=== PATIENT | male | born 1970 | race Caucasian/White ===

== ENCOUNTER 2021-01-23 08:57 | Inpatient (IN) | payer MEDICAID ==
[~2021-01-23] VITALS: Ht 175.3 cm; Wt 70.0 kg
[2021-01-23] MEDS ORDERED: KETOROLAC TROMETHAMINE 60 MG/2 ML VIAL IM ONE (09:15)
[2021-01-23] MEDS ORDERED: MORPHINE SULFATE 4 MG/ML SYRINGE IVP ONE ×2 (09:30→11:15)
[2021-01-23] MEDS ORDERED: ONDANSETRON HCL 4 MG/2 ML VIAL IVP ONE (09:30)
[2021-01-23 09:53] LABS: EOSINOPHILS % (AUTO) 0.6 % (1.0-6.0); HEMOGLOBIN 15.8 g/dL (13.5-17.5); MEAN CORPUSCULAR HGB CONC 33.8 G/dL (31.0-37.0); MEAN CORPUSCULAR VOLUME 93 fL (80-100); MONOCYTES # (AUTO) 0.4 K/uL (0.1-1.0)
[2021-01-23 09:57] LABS: BASOPHILS % (AUTO) 0.9 % (0.0-2.0); HEMATOCRIT 46.8 % (41-53); LYMPHOCYTES # (AUTO) 1.8 K/uL (1.0-4.8); MEAN CORPUSCULAR HEMOGLOBIN 31.4 pg (26.0-34.0); MONOCYTES % (AUTO) 4.2 % (2.0-9.0); NEUTROPHILS # (AUTO) 6.9 K/uL (1.8-7.7); NEUTROPHILS % (AUTO) 74.3 % (40.0-70.0); RED BLOOD CELL COUNT(AUTO) 5.04 MIL/uL (4.50-5.90)
[2021-01-23 10:00] LABS: ANION GAP 12 mmol/L (8-16); CALCIUM, TOTAL 8.8 mg/dL (8.8-10.5); CARBON DIOXIDE 23 mmol/L (22-29); CHLORIDE 105 mmol/L (98-107); CREATININE 0.75 mg/dL (0.60-1.30); GLOMERULAR FILTR. RATE CALC > 60 mL/min (>60); GLUCOSE,RANDOM 111 mg/dL (70-110); POTASSIUM 4.3 mmol/L (3.5-5.1); SODIUM SERUM 140 mmol/L (136-145); UREA NITROGEN, BLOOD 11 mg/dL (7-18)
[2021-01-23 10:04] LABS: INR 1.1 (0.9-1.1); PROTHROMBIN TIME 11.6 SEC (9.4-11.6)
[2021-01-23 10:35] LABS: PLATELET COUNT (AUTO) 193 K/uL (150-450)
[2021-01-23] MEDS ORDERED: 0.9% SODIUM CHLORIDE 10 ML SYRINGE IVP PRN (11:30)
[2021-01-23 12:24] LABS: COVID AG,FIA SOURCE NASOPHARYNGEAL
[2021-01-23] MEDS ORDERED: MORPHINE SULFATE 2 MG/ML SYRINGE IVP PRN (14:30)
[2021-01-23] MEDS ORDERED: ZOLPIDEM TARTRATE 5 MG TABLET PO PRN (14:30)
[2021-01-23] MEDS ORDERED: ALBUTEROL SULFATE 2.5 MG/0.5 ML NEB SOLUTION NEB PRN (14:30)
[2021-01-23] MEDS ORDERED: MAGNESIUM HYDROXIDE SUSPENSION 30 ML UDCUP PO PRN (14:30)
[2021-01-23] MEDS ORDERED: BISACODYL 10 MG RECTAL RECTAL SUPPOSITORY PR PRN (14:30)
[2021-01-23] MEDS ORDERED: HYDROCODONE/ACETAMINOPHEN 5-325 MG TABLET PO PRN (14:30)
[2021-01-23] MEDS ORDERED: ONDANSETRON HCL 4 MG/2 ML VIAL IVP PRN (14:30)
[2021-01-23] MEDS ORDERED: IPRATROPIUM BROMIDE 0.5 MG/2.5 ML NEB SOLUTION NEB PRN (14:30)
[2021-01-23] MEDS ORDERED: ACETAMINOPHEN 325 MG TABLET PO PRN (14:30)
[2021-01-23 16:19] VITALS: BP 157/83
[2021-01-23] MEDS: HEPARIN SODIUM,PORCINE 5,000 UNITS/ML VIAL SQ SCH ×2 (16:38→23:17)
[2021-01-23 19:25] VITALS: BP 128/86
[2021-01-23 19:45] VITALS: BP 128/86
[2021-01-23] MEDS: DOCUSATE SODIUM 100 MG CAPSULE PO SCH (20:11)
[2021-01-23 22:55] VITALS: BP 132/75
[2021-01-24 03:40] VITALS: BP 126/78
[2021-01-24] MEDS ORDERED: RINGERS SOLUTION,LACTATED 1,000 ML IV ONE ×3 (05:30→08:09)
[2021-01-24] MEDS ORDERED: MICROFIBRILLAR COLLAGEN 1 GM PACKAGE TP ONE (06:18)
[2021-01-24] MEDS ORDERED: VANCOMYCIN HCL 1 GM/VIAL ONE (06:18)
[2021-01-24] MEDS ORDERED: SUGAMMADEX SODIUM 200 MG/2 ML VIAL IVP ONE (06:18)
[2021-01-24] MEDS ORDERED: BUPIVACAINE HCL/PF 0.25% 30 ML VIAL ONE (06:18)
[2021-01-24] MEDS ORDERED: SODIUM CHLORIDE 0.9% 0 ML ONE ×2 (06:18→06:19)
[2021-01-24] MEDS ORDERED: BACITRACIN 50,000 UNITS/VIAL ONE (06:19)
[2021-01-24] MEDS ORDERED: SODIUM CL IRRIG SOLN BAG 3,000 ML IRRIG ONE (06:19)
[2021-01-24] MEDS ORDERED: CeFAZolin 2 GM/DEXTROSE 50 ML IV ONE (06:30)
[2021-01-24] MEDS ORDERED: BUPIVACAINE LIPOSOME/PF 1.3%-13.3MG/ML SUSPENSION 20 ML VIAL INJ ONE (06:30)
[2021-01-24] MEDS ORDERED: HYDROmorphone 2 MG/ML VIAL IVP PRN (09:15)
[2021-01-24] MEDS ORDERED: FentaNYL CITRATE PF 100 MCG/2 ML VIAL IVP PRN (09:15)
[2021-01-24] MEDS ORDERED: MEPERIDINE-PF 25 MG/ML VIAL IVP PRN (09:15)
[2021-01-24] MEDS ORDERED: HYDROCODONE/ACETAMINOPHEN 10-325 MG TABLET PO PRN ×2 (09:45)
[2021-01-24] MEDS: PANTOPRAZOLE SODIUM 40 MG/VIAL IVP SCH (10:50)
[2021-01-24] MEDS: DOCUSATE SODIUM 100 MG CAPSULE PO SCH ×2 (10:50→19:27)
[2021-01-24 12:12] VITALS: BP 136/81
[2021-01-24] MEDS ORDERED: SODIUM CHLORIDE 0.9% 250 ML IV ONE (14:24)
[2021-01-24] MEDS: CeFAZolin 2 GM/DEXTROSE 50 ML IV SCH ×2 (14:40→22:55)
[2021-01-24 16:08] VITALS: BP 108/75
[2021-01-24 19:19] VITALS: BP 137/67
[2021-01-24] MEDS: OXYGEN THERAPY IH SCH (19:27)
[2021-01-24 22:59] VITALS: BP 112/60
[2021-01-25 04:57] VITALS: BP 128/61
[2021-01-25] MEDS ORDERED: DEXAMETHASONE SOD PHOS 4 MG/ML VIAL IVP ONE (05:28)
[2021-01-25] MEDS ORDERED: FentaNYL CITRATE PF 100 MCG/2 ML VIAL IVP ONE (05:28)
[2021-01-25] MEDS ORDERED: MIDAZOLAM HCL 2 MG/2 ML VIAL IVP ONE (05:28)
[2021-01-25] MEDS ORDERED: ROCURONIUM BROMIDE 10 MG/ML 5 ML VIAL IVP ONE (05:28)
[2021-01-25] MEDS ORDERED: ONDANSETRON HCL 4 MG/2 ML VIAL IVP ONE (05:28)
[2021-01-25] MEDS ORDERED: LIDOCAINE/PF 2% 5 ML SYRINGE IVP ONE (05:28)
[2021-01-25] MEDS ORDERED: PROPOFOL 1% 20 ML VIAL IVP ONE (05:28)
[2021-01-25] MEDS ORDERED: SUGAMMADEX SODIUM 200 MG/2 ML VIAL IVP ONE (05:28)
[2021-01-25] MEDS: CeFAZolin 2 GM/DEXTROSE 50 ML IV SCH (06:08)
[2021-01-25] MEDS: DOCUSATE SODIUM 100 MG CAPSULE PO SCH (07:57)
[2021-01-25] MEDS: PANTOPRAZOLE SODIUM 40 MG/VIAL IVP SCH (07:57)
[2021-01-25] MEDS: OXYGEN THERAPY IH SCH (08:00)
[2021-01-25 08:09] VITALS: BP 115/76
[2021-01-25] MEDS ORDERED: ENOXAPARIN SODIUM 40 MG/0.4 ML PF SYRINGE SQ SCH (09:00)
[2021-01-25] MEDS ORDERED: DOCU100C33 PO (09:57)
[2021-01-25] MEDS ORDERED: HYDR-4723 PO (09:59)
== END 2021-01-25 13:10 | disposition home or self-care (01) | DRG 313 ==
LOC: EMS 08:57 → 6N 14:14
PROVIDERS: ADMIT Hospitalist; ATTEND Hospitalist
PROC: 0QSG06Z Reposition Right Tibia with Intramedullary Internal Fixation Device, Open Approach (ICD-10-PCS; principal; 2021-01-24 06:30)
DX: S82.301A Unspecified fracture of lower end of right tibia, initial encounter for closed fracture (principal); S82.831A Other fracture of upper and lower end of right fibula, initial encounter for closed fracture; Z20.822 Contact with and (suspected) exposure to COVID-19; W18.39XA Other fall on same level, initial encounter; Y93.66 Activity, soccer; Y92.89 Other specified places as the place of occurrence of the external cause; Y99.8 Other external cause status
CPT/HCPCS: 73700; 76001; 80048; 85025; 85610; 85730; 87081; 97116; 99285; A9575; C9113; C9290; J0690; J1100; J1170; J1644; J1650; J1885; J2250; J2270; J2405; J2704; J3010; J3370; J3490; J7030; J7050; J7120